=== PATIENT | male | born 1985 ===

== ENCOUNTER → 2016-10-25 | Outpatient (REF) | LOC: WSOH 08:41 | DX: Z02.89 Encounter for other administrative examinations (principal) ==

== ENCOUNTER → 2016-12-27 | Outpatient (REF) | LOC: WSOH 13:59 | DX: Z02.89 Encounter for other administrative examinations (principal) ==

== ENCOUNTER 2020-06-25 21:46 | Emergency (ER) | payer SELFPAY ==
[~2020-06-25] VITALS: Ht 175.3 cm; Wt 81.8 kg
[2020-06-25 23:51] VITALS: BP 131/96; PULSE 69
== END 2020-06-25 23:51 | disposition home or self-care (01) ==
LOC: COL.ER 21:46
DX: S52.302A Unspecified fracture of shaft of left radius, initial encounter for closed fracture (principal); S52.612A Displaced fracture of left ulna styloid process, initial encounter for closed fracture; F17.210 Nicotine dependence, cigarettes, uncomplicated; V28.0XXA Motorcycle driver injured in noncollision transport accident in nontraffic accident, initial encounter; X50.0XXA Overexertion from strenuous movement or load, initial encounter; Y93.55 Activity, bike riding
CPT/HCPCS: J2704; J3010